=== PATIENT | female | born 1940 | race Two or more races ===

== ENCOUNTER → 2020-09-02 08:00 | Outpatient (CLI) | payer OTHER ==
[~2020-09-02] VITALS: Ht 165.1 cm; Wt 70.3 kg
[~2020-09-02 08:00] MED LIST: CARAFATE1 GM/10 ML PO; CARVEDILOL12.5 M1 PO; CHILDREN'S ASPI81 MG PO; FORTAMET500 MG PO; SINVASTATIN PO; TIROSINT75 MCG PO
== END | disposition home or self-care (01) ==
LOC: LAB 08:00 → SURH 09-08 07:30 → EDSTATUS 09-15 07:30 → SURH 09-15 07:30
PROVIDERS: ATTEND Orthopaedic Surgery
DX: Z20.828 Contact with and (suspected) exposure to other viral communicable diseases (principal); Z03.818 Encounter for observation for suspected exposure to other biological agents ruled out; D68.8 Other specified coagulation defects; E78.2 Mixed hyperlipidemia; N39.0 Urinary tract infection, site not specified; R07.89 Other chest pain; I10 Essential (primary) hypertension

== ENCOUNTER 2020-09-07 16:16 | Outpatient (CLI) | payer OTHER | END 2020-09-07 16:20 | disposition home or self-care (01) | LOC: LAB 16:16 | PROVIDERS: ATTEND Internal Medicine Hematology & Oncology | DX: E03.8 Other specified hypothyroidism (principal); D50.8 Other iron deficiency anemias; R79.89 Other specified abnormal findings of blood chemistry; D51.8 Other vitamin B12 deficiency anemias; D69.1 Qualitative platelet defects; D51.1 Vitamin B12 deficiency anemia due to selective vitamin B12 malabsorption with proteinuria; D51.3 Other dietary vitamin B12 deficiency anemia; K29.40 Chronic atrophic gastritis without bleeding; I10 Essential (primary) hypertension ==